=== PATIENT | male | born 1980 | race Caucasian/White ===

== ENCOUNTER 2017-02-21 13:23 | Emergency (ER) | payer OTHER ==
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
== END 2017-02-21 14:20 | disposition home or self-care (01) ==
LOC: ER 13:23
DX: S40.211A Abrasion of right shoulder, initial encounter (principal); S70.211A Abrasion, right hip, initial encounter; S70.311A Abrasion, right thigh, initial encounter; E11.9 Type 2 diabetes mellitus without complications; V27.4XXA Motorcycle driver injured in collision with fixed or stationary object in traffic accident, initial encounter; Y92.481 Parking lot as the place of occurrence of the external cause